=== PATIENT | female | born 1970 | race Caucasian/White ===

== ENCOUNTER → 2016-11-11 | Outpatient (CLI) | payer BC ==
[~2016-11-11] MED LIST: ACET-1651 PO; FEXO180T56 PO; IBUP100T4 PO; LEVO75TA58 PO
== END ==
LOC: WC.BC 09:12
DX: Z12.31 Encounter for screening mammogram for malignant neoplasm of breast (principal); N64.59 Other signs and symptoms in breast
CPT/HCPCS: 77063; G0202